=== PATIENT | male | born 1955 | race Asian ===

== ENCOUNTER 2016-11-11 08:38 | Emergency (ER) | payer OTHER ==
[~2016-11-11] VITALS: Ht 165.1 cm; Wt 77.1 kg
[2016-11-11 10:21] VITALS: BP 178/87
== END 2016-11-11 10:28 | disposition home or self-care (01) ==
LOC: ED 08:38
PROC: 2W3RX1Z Immobilization of Left Lower Leg using Splint (ICD-10-PCS; principal; 2016-11-11)
DX: S93.402A Sprain of unspecified ligament of left ankle, initial encounter (principal); S96.912A Strain of unspecified muscle and tendon at ankle and foot level, left foot, initial encounter; W19.XXXA Unspecified fall, initial encounter; Y92.098 Other place in other non-institutional residence as the place of occurrence of the external cause
CPT/HCPCS: 99282; L4350